=== PATIENT | female | born 1980 | race Caucasian/White ===

== ENCOUNTER 2017-01-05 22:34 | Emergency (ER) | payer SELFPAY ==
[~2017-01-05] VITALS: Ht 175.3 cm; Wt 80.0 kg
[2017-01-05 22:35] VITALS: BP 136/84; PULSE 82; RESP 20; TEMP 98.7; O2SAT 100
--- NOTE | 2017-01-05 23:21 | PD ---
HPI Chief Complaint: GI Complaint Time Seen by Provider: 23:21 Travel History International Travel<30 days: No Contact w/Intl Traveler<30days: No Traveled to known affect area: No History of Present Illness HPI 36-year-old female came to the emergency room with history of severe abdominal pain which was sudden onset at around 8 PM tonight. Patient points the pain over to the epigastric and right upper quadrant area radiating to her back. She has been very nauseous and vomited multiple times at home as well as here. She is otherwise a healthy person. She tried to eat something at 9 PM which was mashed potatoes and a piece of toast with difficulty and then eventually vomited. Patient was hemodynamically stable. She appeared in severe distress. [facility] Past Medical History Narrative Medical List of her past medical, surgical, social and family history was reviewed from the nursing note. ?: Unknown LMP: current Social History Tobacco Use: No Allergies-Medications (Allergen,Severity, Reaction): Coded Allergies: No Known Allergies (Unverified , 01/05/17) Comments No known allergies. Reported Meds & Prescriptions Reported Meds & Active Scripts Active No Active Prescriptions or Reported Medications Narrative Medication List of her past medical, surgical, social and family history was reviewed from the nursing note. Review of Systems Except as stated in HPI: all other systems reviewed are Neg Physical Exam Narrative GENERAL: Awake, alert, anxious, severe distress SKIN: Focused skin assessment warm/dry. HEAD: Atraumatic. Normocephalic. EYES: Pupils equal and round. No scleral icterus. No injection or drainage. ENT: No nasal bleeding or discharge. Mucous membranes pink and moist. NECK: Trachea midline. No JVD. CARDIOVASCULAR: Regular rate and rhythm. No murmur appreciated. RESPIRATORY: No accessory muscle use. Clear to auscultation. Breath sounds equal bilaterally. GASTROINTESTINAL: Abdomen soft, tender in the epigastric and right upper quadrant region, nondistended. Hepatic and splenic margins not palpable. MUSCULOSKELETAL: No obvious deformities. No clubbing. No cyanosis. No edema. NEUROLOGICAL: Awake and alert. No obvious cranial nerve deficits. Motor grossly within normal limits. Normal speech. PSYCHIATRIC: Appropriate mood and affect; insight and judgment normal. Data Data Last Documented VS Orders Beta Hcg (Quant/Titer) (01/05/17 23:24) Complete Blood Count With Diff (01/05/17 23:24) Comprehensive Metabolic Panel (01/05/17 23:24) Lipase (01/05/17 23:24) Urinalysis - C+S If Indicated (01/05/17 23:24) Ct Abd/Pel W/O Iv Contrast (01/05/17 23:24) Iv Access Insert/Monitor (01/05/17 23:24) Ecg Monitoring (01/05/17 23:24) Oximetry (01/05/17 23:24) Morphine Inj (Morphine Inj) (01/05/17 23:30) Ondansetron Inj (Zofran Inj) (01/05/17 23:30) Sodium Chlor 0.9% 1000 Ml Inj (Ns 1000 M (01/05/17 23:24) Sodium Chloride 0.9% Flush (Ns Flush) (01/05/17 23:30) Electrocardiogram (01/05/17 ) Troponin I (01/05/17 23:40) Fentanyl Inj (Fentanyl Inj) (01/06/17 00:45) Ct Abd/Pel W Iv Contrast(Rout) (01/06/17 ) Iohexol 350 Inj (Omnipaque 350 Inj) (01/06/17 02:09) Fentanyl Inj (Fentanyl Inj) (01/06/17 02:15) Hydromorphone Pf Inj (Dilaudid Pf Inj) (01/06/17 03:00) Type And Screen (01/06/17 03:04) Prothrombin Time / Inr (Pt) (01/06/17 03:04) Sodium Chlor 0.9% 1000 Ml Inj (Ns 1000 M (01/06/17 03:05) Radiology Film Requests (01/06/17 ) Labs Laboratory Tests Test 01/05/17 01/06/17 01/06/17 01/06/17 23:40 03:05 03:10 04:00 White Blood Count 11.4 TH/MM3 Red Blood Count 3.92 MIL/MM3 Hemoglobin 11.0 GM/DL Hematocrit 33.7 % Mean Corpuscular Volume 85.9 FL Mean Corpuscular Hemoglobin 28.1 PG Mean Corpuscular Hemoglobin 32.8 % Concent Red Cell Distribution Width 14.8 % Platelet Count 389 TH/MM3 Mean Platelet Volume 8.0 FL Neutrophils (%) (Auto) 69.8 % Lymphocytes (%) (Auto) 22.7 % Monocytes (%) (Auto) 6.6 % Eosinophils (%) (Auto) 0.4 % Basophils (%) (Auto) 0.5 % Neutrophils # (Auto) 8.0 TH/MM3 Lymphocytes # (Auto) 2.6 TH/MM3 Monocytes # (Auto) 0.8 TH/MM3 Eosinophils # (Auto) 0.0 TH/MM3 Basophils # (Auto) 0.1 TH/MM3 CBC Comment DIFF FINAL Differential Comment Sodium Level 141 MEQ/L Potassium Level 3.7 MEQ/L Chloride Level 105 MEQ/L Carbon Dioxide Level 26.4 MEQ/L Anion Gap 10 MEQ/L Blood Urea Nitrogen 15 MG/DL Creatinine 0.71 MG/DL Estimat Glomerular Filtration 94 ML/MIN Rate Random Glucose 115 MG/DL Calcium Level 9.2 MG/DL Total Bilirubin 0.2 MG/DL Aspartate Amino Transf 134 U/L (AST/SGOT) Alanine Aminotransferase 67 U/L (ALT/SGPT) Alkaline Phosphatase 137 U/L Troponin I LESS THAN 0.02 NG/ML Total Protein 7.4 GM/DL Albumin 3.5 GM/DL Lipase 212 U/L Human Chorionic Gonadotropin, LESS THAN 1 Quant MIU/ML Blood Type O POSITIVE Antibody Screen NEGATIVE Crossmatch Leukocyte-Reduced Red Blood Cells Blood Bank Comment Prothrombin Time 11.1 SEC Prothromb Time International 1.0 RATIO Ratio Urine Color YELLOW Urine Turbidity CLEAR Urine pH 5.5 Urine Specific [place] GREATER THAN 1.050 Urine Protein TRACE mg/dL Urine Glucose (UA) NEG mg/dL Urine Ketones NEG mg/dL Urine Occult Blood MOD Urine Nitrite NEG Urine Bilirubin NEG Urine Urobilinogen LESS THAN 2.0 MG/DL Urine Leukocyte Esterase NEG Urine RBC 3 /hpf Urine WBC 3 /hpf Urine Squamous Epithelial 2 /hpf Cells Microscopic Urinalysis Comment CULT NOT INDICATED Test 01/06/17 05:49 Blood Type MDM Medical Decision Making Medical Screen Exam Complete: Yes Emergency Medical Condition: Yes Medical Record Reviewed: Yes Differential Diagnosis Acute cholecystitis, biliary colic, acute pancreatitis Narrative Course 4:22 AM initially I had ordered a CT scan without contrast which showed heterogeneous liver mass. I discussed the case with the general surgeon Dr. Mauro and I was told that it's probably an adenoma and if there is no bleeding and then would be nothing to be concerned about. However since the initial CT was done with without IV contrast it was hard to tell if the heterogeneous mass was blood. I discussed with Dr. Bejarano regarding this who had initially read the CT and he agreed and asked for a repeat scan with IV contrast. Meanwhile the patient received multiple doses of pain medication and was still in discomfort. I ordered a CT scan with IV contrast to get a better definition of the liver mass. Once the CT scan with IV contrast was done and the case was discussed again with the general surgeon debone supervisor Dr. Mauro I was recommended by him to discuss with interventional radiology but preferably transfer this patient to a liver transplant center given the extensiveness of the hemorrhage within the liver. As per him and the radiologist this is probably a large adenoma that is bleeding. There is a very high chance that patient will end up requiring liver transplant. The bleeding is still contained within the liver capsule which is causing the patient to be in severe distress from pain. The transfer should be achieved as emergently as possible. I was asked by Dr. Arriaga from interventional radiology to call him emergently if the patient becomes hemodynamically unstable in which case he would have to probably embolize the hepatic artery. I discussed the case with Dr. Head from [facility] who is the transplant surgeon debone supervisor and explained the situation and the case to him. He wanted to speak with the general surgeon and the call was transferred to the OR. I was called back from the OR to let me know that the transplant surgeon had accepted the patient. I have updated the patient as well as her about all this in details and answered all their questions the best of my ability. Patient continues to remain hemodynamically stable. Currently we are trying to arrange transportation. I was told that the helicopter cannot fly given the weather conditions. Ground transportation is trying to be arranged emergently. Patient will go to the [facility] OR holding area from here. COBRA paperwork has been signed. 5:30 AM patient's blood pressure had started to drop. She went below 100 mmHg systolic by the time EMS arrived. Patient's color looked very pale. She was lethargic but opened her eyes and answer questions. She was still in pain she said. Blood pressure went down to the 90s upon recycling at which point I got concerned and spoke with Dr. Arriaga from interventional radiology. He said he would come in but was hesitant in embolizing the patient since the outcome may not be good. I discussed with Dr. Head and he asked me to just send the patient with blood as soon as possible as they were waiting for her in the OR. Just before the paramedics were pulling out of the room with her on their stretcher, the last pressure was 65 systolic done manually by the consulting nurse. I have sent 4 units of emergency release blood with the team to be transfused if needed. The nurse has gone with the patient for the transport and I asked her to hang the blood as soon as patient was inside the ambulance given the BP. Critical Care Narrative Aggregate critical care time was 150 minutes. Time to perform other separately billable procedures was not included in the critical care time. My time did not include minutes spent treating any other patients simultaneously or on activities that did not directly contribute to the patient's treatment. The services I provided to this patient were to treat and/or prevent clinically significant deterioration that could result in: Intracapsular Liver Hemorrhage, emergent transfer to liver transplant center I provided critical care services requiring my management, as noted below: Chart data review, documentation time, medication orders and management, vital sign assessments/reviewing monitor data, ordering and reviewing lab tests, ordering and interpreting/reviewing x-rays and diagnostic studies, care of the patient and discussion of the patient with the admitting physicians. Procedures EKG Prior to Arrival: No Physician Communication Physician Communication Dr. Mauro, Dr. Arriaga, Dr. 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
[2017-01-05] MEDS ORDERED: SODIUM CHLOR 0.9% 1000 ML INJ 1,000 ML IV SCH (23:24)
[2017-01-05] MEDS ORDERED: SODIUM CHLORIDE 0.9% FLUSH 10 ML FLUSH IV FLUSH PRN (23:30)
[2017-01-05] MEDS ORDERED: MORPHINE SULFATE 4 MG/ML INJ IV PUSH ONE (23:30)
[2017-01-05] MEDS ORDERED: ONDANSETRON HCL 4 MG/2 ML VIAL IVP ONE (23:30)
[2017-01-05 23:50] VITALS: PULSE 60; RESP 16; O2SAT 100
[2017-01-06] VITALS (8 sets, daily range): BP systolic 67–136; BP diastolic 53–59; PULSE 57–90; RESP 14–18; O2SAT 97–98
[2017-01-06 00:18] LABS: BASOPHIL # 0.1 TH/MM3 (0-0.2); BASOPHIL % 0.5 % (0.0-2.0); EOSINOPHIL % 0.4 % (0.0-4.0); HEMATOCRIT 33.7 % (35.0-46.0); HEMO FLAGS DIFF FINAL; LYMPH % 22.7 % (9.0-44.0); LYMPHOCYTE # 2.6 TH/MM3 (1.0-4.8); MEAN CELL VOLUME 85.9 FL (80.0-100.0); MEAN CORPUSCULAR HEMOGLOBIN 28.1 PG (27.0-34.0); MEAN CORPUSCULAR HGB CONC 32.8 % (32.0-36.0); MONO % 6.6 % (0.0-8.0); NEUT % 69.8 % (16.0-70.0); PLATELET COUNT 389 TH/MM3 (150-450); RED BLOOD COUNT 3.92 MIL/MM3 (4.00-5.30); RED CELL DISTRIBUTION WIDTH 14.8 % (11.6-17.2); WHITE BLOOD COUNT 11.4 TH/MM3 (4.0-11.0)
[2017-01-06 00:20] LABS: ALT (GPT) 67 U/L (10-53); ANION GAP 10 MEQ/L (5-15); AST (GOT) 134 U/L (15-37); BICARBONATE 26.4 MEQ/L (21.0-32.0); BLOOD UREA NITROGEN 15 MG/DL (7-18); CHLORIDE 105 MEQ/L (98-107); GLOMERULAR FILTRATION RATE 94 ML/MIN (>89); POTASSIUM 3.7 MEQ/L (3.5-5.1); SODIUM (NA) 141 MEQ/L (136-145)
[2017-01-06 00:25] LABS: ALKALINE PHOSPHATASE 137 U/L (45-117); BETA HCG QUANT LESS THAN 1 MIU/ML (0-5); TOTAL BILIRUBIN ADULT 0.2 MG/DL (0.2-1.0)
--- NOTE | 2017-01-06 01:19 | RADRPT ---
EXAM DATE/TIME: 01/06/2017 00:44 [facility] COMPARISON: No previous studies available for comparison. INDICATIONS : Abdominal pain. ORAL CONTRAST: No oral contrast ingested. RADIATION DOSE: 9.96 CTDIvol (mGy) MEDICAL HISTORY : None SURGICAL HISTORY : None. ENCOUNTER: Initial ACUITY: 1 day PAIN SCALE: 10/10 LOCATION: abdomen TECHNIQUE: Volumetric scanning of the abdomen and pelvis was performed. Using automated exposure control and ad justment of the mA and/or kV according to patient size, radiation dose was kept as low as reasonably achievable to obtain optimal diagnostic quality images. DICOM format image data is available electro nically for review and comparison. FINDINGS: LOWER LUNGS: The visualized lower lungs are clear. LIVER: Homogeneous density with the exception of a large exophytic mass measuring 10.7 x 14.6 x 18.4 cm proj ecting from the right lobe inferiorly. There is no dilation of the biliary tree. No calcified galls tones. SPLEEN: Normal size without lesion. PANCREAS: Within normal limits. KIDNEYS: Normal in size and shape. There is no mass, stone, or hydronephrosis. ADRENAL GLANDS: Within normal limits. VASCULAR: There is no aortic aneurysm. BOWEL/MESENTERY: The stomach, small bowel, and colon demonstrate no acute abnormality. There is no free intraperitone al air or fluid. ABDOMINAL WALL: Within normal limits. RETROPERITONEUM: There is no lymphadenopathy. BLADDER: No wall thickening or mass. REPRODUCTIVE: Within normal limits. INGUINAL: There is no lymphadenopathy or hernia. MUSCULOSKELETAL: Within normal limits for patient age. CONCLUSION: 1. Large heterogeneous mass projecting from the liver. 2. No acute inflammatory process. Adria Bejarano MD on January 06, 2017 at 1:15 Board Certified Radiologist. This report was verified electronically.
[2017-01-06] MEDS ORDERED: IOHEXOL 350 MG/ML 10 ML VIAL (for RAD DIAG) IV ONE (02:09)
--- NOTE | 2017-01-06 02:40 | RADRPT ---
EXAM DATE/TIME: 01/06/2017 01:59 [facility] COMPARISON: CT ABDOMEN & PELVIS W/O CONTRAST, January 06, 2017, 0:44. INDICATIONS : Abdominal pain, abnormal prior CT. IV CONTRAST: 100 cc Omnipaque 350 (iohexol) IV ORAL CONTRAST: No oral contrast ingested. RADIATION DOSE: 8.28 CTDIvol (mGy) MEDICAL HISTORY : None SURGICAL HISTORY : None. ENCOUNTER: Initial ACUITY: 1 day PAIN SCALE: 9/10 LOCATION: abdomen TECHNIQUE: Volumetric scanning of the abdomen and pelvis was performed. Using automated exposure control and ad justment of the mA and/or kV according to patient size, radiation dose was kept as low as reasonably achievable to obtain optimal diagnostic quality images. DICOM format image data is available electro nically for review and comparison. FINDINGS: LOWER LUNGS: The visualized lower lungs are clear. LIVER: The liver is again noted to contain a large exophytic mass with multiple areas of hemorrhage. There i s active extravasation of contrast. SPLEEN: Normal size without lesion. PANCREAS: Within normal limits. KIDNEYS: Normal in size and shape. There is no mass, stone or hydronephrosis. ADRENAL GLANDS: Within normal limits. VASCULAR: There is no aortic aneurysm. BOWEL/MESENTERY: The stomach, small bowel, and colon demonstrate no acute abnormality. There is no free intraperitone al air or fluid. ABDOMINAL WALL: Within normal limits. RETROPERITONEUM: There is no lymphadenopathy. BLADDER: No wall thickening or mass. REPRODUCTIVE: Within normal limits. INGUINAL: There is no lymphadenopathy or hernia. MUSCULOSKELETAL: Within normal limits for patient age. CONCLUSION: The large exophytic liver mass does contain multiple areas of hemorrhage including active extravasati on. 1. Adria Bejarano MD on January 06, 2017 at 2:32 Board Certified Radiologist. This report was verified electronically.
[2017-01-06] MEDS ORDERED: HYDROmorphone HCL PF 1 MG/ML VIAL IV PUSH ONE (03:00)
[2017-01-06] MEDS ORDERED: SODIUM CHLOR 0.9% 1000 ML INJ 1,000 ML IV SCH (03:05)
[2017-01-06 03:44] LABS: PROTHROMBIN TIME - PATIENT 11.1 SEC (9.8-11.6)
[2017-01-06 05:14] LABS: BLOOD, URINE MOD (NEG); COMMENT (UR) CULT NOT INDICATED; CULTURE IF INDICATED CULT NOT INDICATED; GLUCOSE,URINE NEG (NEG); KETONE, URINE NEG (NEG); NITRITE,URINE NEG (NEG); PH, URINE 5.5 (5.0-8.5); SQUAMOUS EPITHELIAL CELL URINE 2 /hpf (0-5); URINE COLOR YELLOW (YELLW/STRAW)
--- NOTE | 2017-01-06 12:14 | EKG ---
Date Performed: 01/05/2017 Time Performed: 23:38:37 PTAGE: 36 years EKG: Sinus rhythm NORMAL ECG NO PREVIOUS TRACING DOCTOR: Yannick Lam Interpretating Date/Time 01/06/2017 12:12:14
== END 2017-01-06 05:38 | disposition short-term general hospital (02) ==
LOC: NEPC 22:34
DX: K76.89 Other specified diseases of liver (principal); R58 Hemorrhage, not elsewhere classified; D13.4 Benign neoplasm of liver; R57.8 Other shock; R11.2 Nausea with vomiting, unspecified
CPT/HCPCS: 36430; 74176; 74177; 80053; 81001; 83690; 84484; 84702; 85025; 85610; 86850; 86900; 86901; 86920; 93005; 96361; 96374; 96375; 99291; J1170; J2270; J2405; J3010; J7030; P9016; Q9967